=== PATIENT | female | born 1935 | race Caucasian/White ===

== ENCOUNTER → 2016-07-19 | Day surgery (SDC) | payer MEDICARE ==
[~2016-07-19] VITALS: Ht 167.6 cm; Wt 76.0 kg
[~2016-07-19] MED LIST: AMLO5TAB2 PO; ASPI1TAB69 PO; BOSW5TAB PO; BYST10TA2 PO; CALTTAB5 PO; CYCLOPENTOLATE HCL 1% OPHT SOLN 2 ML BTL ONE; EPINEPHrine HCL (1:1000) 1 MG/ML VIAL ONE; FLURBIPROFEN 0.03% OPHT SOLN 2.5 ML BTL ONE; LIDOCAINE HCL 1% 20 ML VIAL ONE; LIDOCAINE HCL 2% JELLY 5 ML SYRINGE ONE; LIDOCAINE HCL 2% JELLY 5 ML SYRINGE TOPICAL ONE; MIDAZOLAM HCL 2 MG/2 ML VIAL ONE; OXYC1TAB63 PO; PHENYLEPHRINE HCL 10% OPTH SOLN 5 ML BTL ONE; PRAV10TA PO; PREV15CA15 PO; PROPARACAINE HCL 0.5% OPHT SOLN 15 ML BTL LEFT EYE ONE; PROPARACAINE HCL 0.5% OPHT SOLN 15 ML BTL ONE; SODIUM CHLORID 0.9% 500 ML INJ 500 ML ONE; TROPICAMIDE 1% OPHT SOLN 15 ML BTL ONE; VALS1TAB70 PO; VITA100C2 PO
[2016-07-19] MEDS: TROPICAMIDE 1% OPHT SOLN 15 ML BTL LEFT EYE SCH ×4 (06:35→06:50)
[2016-07-19] MEDS: PHENYLEPHRINE HCL 10% OPTH SOLN 5 ML BTL LEFT EYE SCH ×4 (06:35→06:50)
[2016-07-19] MEDS: CYCLOPENTOLATE HCL 1% OPHT SOLN 2 ML BTL LEFT EYE SCH ×4 (06:35→06:50)
[2016-07-19 06:37] VITALS: BP 160/66; PULSE 59; RESP 16; TEMP 99.1; O2SAT 97
[2016-07-19] MEDS: LIDOCAINE HCL 1% 30 ML VIAL ONE ×2 (08:03)
[2016-07-19] MEDS: TOBRAMYCIN/DEXAMETHASONE OPTH OINT 3.5 GM TUBE ONE ×2 (08:17)
[2016-07-19 09:00] VITALS: BP 148/66; PULSE 58; RESP 16; TEMP 98; O2SAT 97
--- NOTE | 2016-07-21 20:27 | MP ---
cc: AHMET WOODS M.D. [facility]# [id number] DATE OF SURGERY 07/19/16 POSTOPERATIVE DIAGNOSIS: Visually significant cataract left eye. OPERATION: Phacoemulsification with posterior chamber lens implantation, left eye. SURGEON: Ahmet Woods MD ANESTHESIA: Topical with MAC. COMPLICATIONS: None. PROCEDURE: After informed consent was obtained, the patient was brought into the operative suite and placed on appropriate monitors by the Anesthesia Service. The patient had been given dilating drops and topical lidocaine gel in the holding area. The patient's operative eye was then prepped and draped in the usual sterile fashion. A wire lid speculum was placed. Further 2% lidocaine was then dropped on the cornea prior to beginning the procedure. A paracentesis incision was made in the peripheral cornea with a 1 mm rohini keratome. The anterior chamber was filled with viscoelastic. The anterior chamber was then entered through a stepped, clear corneal incision using a sharp 3 mm rohini keratome. A circular tear capsulorrhexis was then made with a bent needle cystitome. Following hydrodissection of the lens nucleus with balance saline, phaco-emulsification of the nucleus was performed using a modified chopping technique. The remaining cortex was removed with irrigation/aspiration. The prior two procedures were both performed using the handpieces of the [employer] phaco unit. The capsular bag was then filled with viscoelastic. The intraocular lens was then injected into the capsular bag and positioned. The type of intraocular lens and its power can be found elsewhere in this chart. The remaining viscoelastic was then removed from the anterior chamber with the IA handpiece. The anterior chamber was reformed with balanced saline. The wound was then closed securely with stromal hydration. It was found to be watertight to an intraocular pressure of at least 30 mmHg by palpation. A small amount of balanced salt solution was then removed through the paracentesis site and the intraocular pressure at the end of the case was approximately 20 by palpation. All drapes were then removed. TobraDex ointment was then placed in the eye, which was closed beneath a semi-pressure patch dressing. The patient tolerated this procedure well and left the operating room awake and alert. The patient is to follow-up in my office in the morning. ADDENDUM After the clear corneal incisions were sealed watertight, a 6 mm limbal relaxing incision was made with a 600 micron rohini blade, centered around the 100 degree Metter. MD LATRICE Zepeda/ /11:42 AM /8:26 PM
== END | disposition home or self-care (01) ==
LOC: CSDC 05:47
PROVIDERS: ATTEND Optometrist Occupational Vision
DX: H25.812 Combined forms of age-related cataract, left eye (principal)
CPT/HCPCS: 00142; 66984; J2250; J7040; V2632; J0171